=== PATIENT | female | born 1970 | race Caucasian/White ===

== ENCOUNTER 2017-02-15 05:36 | Emergency (ER) | payer SELFPAY ==
[~2017-02-15] VITALS: Ht 182.9 cm; Wt 92.4 kg
[~2017-02-15 05:36] MED LIST: ADVAI100I PO; DICL75 PO; MMW SSP; PENI500T PO
[2017-02-15 05:39] VITALS: BP 156/84; PULSE 81; RESP 16; TEMP 97.7; O2SAT 96
[2017-02-15 05:50] VITALS: BP 156/84; PULSE 81; RESP 16; TEMP 97.7; O2SAT 96
[2017-02-15] MEDS ORDERED: AMOX500T PO (06:26)
[2017-02-15] MEDS ORDERED: PERC5TAB12 PO (06:26)
[2017-02-15] MEDS ORDERED: oxyCODONE/ACETAMINOPHEN 7.5 MG/325 MG TAB PO ONE (06:30)
[2017-02-15] MEDS ORDERED: AMOXICILLIN 875 MG TAB PO ONE (06:30)
[2017-02-15] MEDS ORDERED: LIDOCAINE HCL 1% 50 ML VIAL IM ONE (06:30)
--- NOTE | 2017-02-15 06:30 | PD ---
HPI Chief Complaint: Oral / Dental Pain or Problem Time Seen by Provider: 06:09 Travel History International Travel<30 days: No Contact w/Intl Traveler<30days: No Traveled to known affect area: No History of Present Illness HPI The patient is a 46-year-old female that noticed a toothache yesterday on tooth #7. She states she has bad teeth and that tooth is broken down and she knows it needs to come out. She did not call a dentist yet. She promises to call a dentist. She denies any fever. [facility] Past Medical History Diminished Hearing: No Respiratory: Yes (HISTOPLAMOSIS) Immunizations Current: Yes Tetanus Vaccination: Unknown Influenza Vaccination: No ?: Not LMP: 02/07/2017 Tubal Ligation: Yes (1990) Past Surgical History Thoracic Surgery: Yes (LOBECTOMY LEFT LOWER AND MEDIASTINAL DISSECTION AND RIGHT MIDDLE LOBECTOMY) Other Surgery: Yes (LLL LOBECTOMY, RIGHT MEDIASTINAL RESECTION, NOSE X 3) Social History Alcohol Use: Yes (SOCIALLY) Tobacco Use: Yes Substance Use: No Allergies-Medications (Allergen,Severity, Reaction): Coded Allergies: No Known Allergies (Unverified , 02/15/17) Reported Meds & Prescriptions Reported Meds & Active Scripts Active No Active Prescriptions or Reported Medications Review of Systems Except as stated in HPI: all other systems reviewed are Neg Physical Exam Narrative GENERAL: The patient is alert, oriented 3 in moderate apparent distress with her toothache. Her vital signs show blood pressure 156/84 but otherwise normal. SKIN: Focused skin assessment warm/dry. HEAD: Atraumatic. Normocephalic. EYES: Pupils equal and round. No scleral icterus. No injection or drainage. ENT: No nasal bleeding or discharge. Mucous membranes pink and moist. Visible external swelling is seen in the right cheek around the tooth that is infected. NECK: Trachea midline. No JVD. CARDIOVASCULAR: Regular rate and rhythm. No murmur appreciated. RESPIRATORY: No accessory muscle use. Clear to auscultation. Breath sounds equal bilaterally. GASTROINTESTINAL: Abdomen soft, non-tender, nondistended. Hepatic and splenic margins not palpable. MUSCULOSKELETAL: No obvious deformities. No clubbing. No cyanosis. No edema. NEUROLOGICAL: Awake and alert. No obvious cranial nerve deficits. Motor grossly within normal limits. Normal speech. PSYCHIATRIC: Appropriate mood and affect; insight and judgment normal. DENTAL: Tooth #7 is broken down with only a small spike sticking out. No drainable abscesses are noted. The rest of her teeth show poor dentition but this is the only one that is tender. Data Data Last Documented VS Vital Signs Date Time Temp Pulse Resp B/P (MAP) Pulse Ox O2 Delivery O2 Flow Rate FiO2 02/15/17 05:50 97.7 81 16 156/84 (108) 96 Orders Orders Lidocaine 1% Inj (50 Ml) (Xylocaine 1% I (02/15/17 06:30) Ceftriaxone Inj (Rocephin Inj) (02/15/17 06:30) Amoxicillin (Trimox) (02/15/17 06:30) Oxycodone-Acetamin 7.5-325 Mg (Percocet (02/15/17 06:30) MDM Medical Decision Making Medical Screen Exam Complete: Yes Emergency Medical Condition: Yes Medical Record Reviewed: Yes Differential Diagnosis Dental infection, drainable dental abscess, Willis's angina-highly unlikely Narrative Course The patient has a dental infection. There is no drainable abscess present. There is soft tissue swelling around this tooth and we will give her Rocephin IM here to speed the process. She needs to follow-up with a dentist. She was here before for dental infection and she knows that tooth needs to come out. Diagnosis Primary Impression: Dental infection Additional Instructions: Amoxicillin is free at [facility]. Do not drink alcohol or drive on the Percocet 5. Follow-up with a dentist, you know this tooth needs to come out. Med/Other Pt SpecificInfo: Prescription(s) given Scripts Oxycodone-Acetaminophen (Percocet) 5-325 mg Tab 1 TAB PO Q4H Y for PAIN, #30 TAB 0 Refills Prov: Miguel Kaur MD 02/15/17 Amoxicillin (Amoxicillin) 500 Mg Tab 500 MG PO TID for Infection for 10 Days, TAB 0 Refills Prov: Miguel Kaur MD 02/15/17 Disposition: 01 DISCHARGE HOME Condition: Stable Miguel Kaur MD Feb 15, 2017 06:30
[2017-02-15 06:37] VITALS: BP 136/76
== END 2017-02-15 06:48 | disposition home or self-care (01) ==
LOC: PHED 05:36
DX: K04.7 Periapical abscess without sinus (principal); F17.200 Nicotine dependence, unspecified, uncomplicated
CPT/HCPCS: 96372; 99284; J0696